=== PATIENT | female | born 1985 | race Caucasian/White ===

== ENCOUNTER 2019-07-13 18:34 | Emergency (ER) | payer OTHER, SELFPAY ==
[2019-07-13 18:48] VITALS: BP 144/87; PULSE 89; RESP 20; TEMP 36.8; O2SAT 100
--- NOTE | 2019-07-13 18:50 | ED.SKABFB ---
HPI - Skin/Abscess/Foreign Bdy General Chief complaint: Skin/Abscess/Foreign Body Stated complaint: Possible Skin infection Time Seen by Provider: 07/13/19 18:55 Source: patient and RN notes reviewed Mode of arrival: ambulatory Limitations: no limitations History of Present Illness HPI narrative: 34-year-old female presents with concern for reaction at tattoo site. Reports she got a tattoo 1 week ago, it was healing normally and she was maintaining as advised by the clay artist. Reports in one specific area the skin opened up and was oozing. She reports that area is tender. She denies any surrounding induration, erythema, tenderness. Reports her received the same patch to and has the same reaction in the same area MD complaint: other (Cellulitis) Related Data Home Medications Medication Instructions Recorded Confirmed loperamide [Imodium A-D] 2 mg PO Q2-4H PRN 07/13/19 07/13/19 Allergies Allergy/AdvReac Type Severity Reaction Status Date / Time No Known Allergies Allergy Verified 07/13/19 19:06 Review of Systems Review of Systems: Narrative: CONSTITUTIONAL: Denies malaise, chills, sweats, or fever. SKIN: Reports localized tattoo reaction MUSCULOSKELETAL: Denies myalgia. NEUROLOGIC: Denies numbness, weakness All systems reviewed & are unremarkable except as noted in HPI and below PMFSH Comments At time of signature, agree with nursing past medical, surgical, social and family history. There is no relevant family history pertinent to the presenting complaint Exam Narrative: Exam Narrative: GENERAL: Well-appearing, well-nourished, and in no acute distress. HEAD: Normocephalic EYES: PERRLA, conjunctivae clear ENT: Mucous membranes moist. NECK: Supple. CHEST: No respiratory distress. Speaks in full sentences. HEART: Regular rate and rhythm. Normal peripheral pulses. SKIN: Warm, dry erythema and excoriated skin noted on tattoo on right forearm under only areas where red ink was placed NEURO: Alert and oriented x3. PSYCH: Normal mood and affect Course Course Emergency Course: Patient is aware of diagnosis, understands and agrees to treatment plan. Anticipatory guidance given. Patient agrees to follow-up as directed and is aware of reasons to seek care at the emergency department. Portions of this record may have been created with voice recognition software Vital Signs Vital signs: Vital Signs Temperature 98.2 F 07/13/19 18:48 Pulse Rate 89 07/13/19 18:48 Respiratory Rate 20 07/13/19 18:48 Blood Pressure 144/87 H 07/13/19 18:48 Pulse Oximetry 100 07/13/19 18:48 Temperature 98.2 F 07/13/19 18:48 Pulse Rate 89 07/13/19 18:48 Respiratory Rate 20 07/13/19 18:48 Blood Pressure 144/87 H 07/13/19 18:48 Pulse Oximetry 100 07/13/19 18:48 Reviewed. MDM - Skin/Abscess/Foreign Bdy MDM Narrative Medical decision making narrative: Does not appear at this time to be erythema multiforme, bullous, SJS, TEN; no evidence at this time to suggest RMSF, endocarditis or Lyme disease; patient looks well, nontoxic and is tolerating oral intake; no neurologic signs or symptoms; no headache, photophobia or neck pain; afebrile; appropriate for initial outpatient treatment; discussed the importance of follow-up, patient agrees; question, viral exanthema, contact dermatitis, allergic dermatitis, eczema, urticaria, cellulitis. No soft palate or uvula edema, no tongue, lip edema or other mucosal involvement, no respiratory compromise, no stridor, no wheezing, no wheezing, no history of syncope, no hypotension, no nausea, vomiting, or diarrhea. Instructed patient to go to nearest ER immediately for any worsening symptoms including but not limited to: fever, spreading rash, pain, sore throat, headache, dizziness, chest pain, trouble breathing, or any symptoms concerning to the patient. Critical Care Time Critical Care Time Critical Care Time: No Discharge Plan Discharge Clinical Impression:
== END 2019-07-13 19:12 | disposition home or self-care (01) ==
PROVIDERS: Emergency Provider Nurse Practitioner
DX: L81.8 Other specified disorders of pigmentation (principal); L53.9 Erythematous condition, unspecified; N80.9 Endometriosis, unspecified
CPT/HCPCS: 99213; G0463

== ENCOUNTER 2020-12-31 17:33 | Emergency (ER) | payer OTHER, SELFPAY ==
[2020-12-31 17:40] VITALS: BP 121/76; PULSE 111; RESP 16; TEMP 37.5; O2SAT 99
--- NOTE | 2020-12-31 18:13 | ED.URI ---
HPI - URI/Sore Throat General Chief Complaint: Upper Respiratory Infection Stated Complaint: Coughing, sore Throat, Body pain Source: patient Mode of arrival: ambulatory Limitations: no limitations History of Present Illness HPI Narrative: Patient is a 35-year-old female who presents complaining of left eye pain, sore throat and mild cough. Patient reports sore throat x1 day. She denies fever, chills, body aches or chest pain. Patient is vaccinated for Covid x2. She denies known exposure. She denies significant medical history at this time. MD elicited complaint: sore throat Related Data Allergies Allergy/AdvReac Type Severity Reaction Status Date / Time No Known Allergies Allergy Verified 07/13/19 19:06 Review of Systems Review of Systems: CONSTITUTIONAL: Denies fever, chills, or sweats. EYES: Denies visual changes, redness, or discharge. ENT: Reports sore throat and left eye pain CARDIOVASCULAR: Denies chest pain, palpitations, or edema. RESPIRATORY: Reports cough, denies dyspnea. GASTROINTESTINAL: Denies abdominal pain, nausea, vomiting, or diarrhea. GENITOURINARY: Denies dysuria or hematuria. SKIN: Denies rash or itching. MUSCULOSKELETAL: Denies back pain, joint pain, or myalgia. NEUROLOGIC: Denies headache, numbness, dizziness, or weakness. PSYCHIATRIC: Denies anxiety or depression. 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 Surgical History Surgical History H/O tubal ligation H/O: History of hysterectomy Hx of cholecystectomy Hx of tonsillectomy Family History Family History (Updated 12/31/20 @ 18:17 by IAM [place]) Other Alzheimers disease Diabetes mellitus Hepatitis Hypertension Social History Social History (Updated 12/31/20 @ 18:17 by IAM [place]) Smoking status: Current every day smoker Alcohol intake: current Alcohol use details: Occasional Substance use: never Living arrangements: with family Comments At the time of signature, I have reviewed and agree with nursing past medical, surgical, social, and family history unless otherwise noted. Please see nursing chart for further information. There is no relevant family history pertinent to the presenting complaint. Exam Narrative: GENERAL: Well-appearing, well-nourished, and in no acute distress. HEAD: Normocephalic, atraumatic. EYES: EOMI. No redness or drainage. Conjunctiva are normal. Edema to left lower lid, visualized stye ENT: Mucous membranes pink and moist. Nares clear. No rhinorrhea. Throat normal. Uvula midline. NECK: AROM. Supple. No lymphadenopathy. CHEST: No respiratory distress. HEART: Regular rate and rhythm. EXTREMITIES: Normal range of motion. No edema. SKIN: Warm, dry, no rash. NEURO: No focal deficits. Alert and oriented x3. Gait steady. PSYCH: Normal affect. No signs of depression or anxiety. Course Vital Signs Vital signs: Vital Signs Temperature 37.5 C 12/31/20 17:40 Pulse Rate 111 H 12/31/20 17:40 Respiratory Rate 16 12/31/20 17:40 Blood Pressure 121/76 12/31/20 17:40 Pulse Oximetry 99 12/31/20 17:40 Temperature 37.5 C 12/31/20 17:40 Pulse Rate 111 H 12/31/20 17:40 Respiratory Rate 16 12/31/20 17:40 Blood Pressure 121/76 12/31/20 17:40 Pulse Oximetry 99 12/31/20 17:40 Reviewed MDM - URI/Sore Throat MDM Narrative Medical decision making narrative: Patient's rapid strep is negative at this time. Patient refuses Covid PCR as she reports she is vaccinated. Discussed with patient that there is still a possibility for Covid, however, patient continues to refuse. Patient also seen to have stye to left eye. Discussed plan of care. Patient agrees with plan of care, patient is stable for discharge to home with outpatient follow-up as needed. Differential Diagnos
== END 2020-12-31 18:26 | disposition home or self-care (01) ==
PROVIDERS: Emergency Provider Nurse Practitioner
DX: H00.015 Hordeolum externum left lower eyelid (principal); N80.9 Endometriosis, unspecified
CPT/HCPCS: 87081; 87880; 99213; G0463

== ENCOUNTER 2023-12-14 17:29 | Emergency (ER) | payer OTHER, SELFPAY ==
--- NOTE | ~2023-12-14 | XR_ITS ---
EXAM: XR lumbar spine 2-3V DATE: 12/14/2023 18:45 HISTORY: low back pain x 10 days. NKI. Radiates down left leg . COMPARISON: None available. FINDINGS: Thoracolumbar scoliosis. 5 nonrib-bearing lumbar-type vertebral bodies. Pedicles intact. No rmal vertebral body alignment. Vertebral body heights preserved. Mild degenerative disc disease at L4 -5. Mild facet arthropathy in the mid and lower lumbar spine. No fracture or dislocation. IMPRESSION: No acute fracture or traumatic malalignment detected in the lumbar spine. Reviewed, dictated and finalized at location K.
[2023-12-14 17:40] VITALS: BP 132/78; PULSE 76; RESP 16; TEMP 36.3; O2SAT 100
--- NOTE | 2023-12-14 18:35 | ED.GENADULT ---
HPI - General Adult General Chief complaint: Back Pain/Injury Stated complaint: back pain x 10days Source: patient Mode of arrival: ambulatory Limitations: no limitations History of Present Illness HPI narrative: Patient presents for evaluation of left lower back pain. Symptom onset 10 days ago. She cannot identify any precipitating cause or injury. Pain is constant, dull when lying down, and shooting with certain movements. She rates her pain 8/10 severity. Pain radiates down the left lower extremity. She tried taking NSAIDs and apply warm moist heat without considerable improvement in her symptoms or after. No history of similar symptoms. Related Data Allergies Allergy/AdvReac Type Severity Reaction Status Date / Time No Known Allergies Allergy Verified 07/13/19 19:06 Review of Systems Review of Systems: CONSTITUTIONAL: Denies fever, chills, or sweats. EYES: Denies visual changes, redness, or discharge. ENT: Denies rhinorrhea, congestion, sore throat, or otalgia. CARDIOVASCULAR: Denies chest pain, palpitations, or edema. RESPIRATORY: Denies cough or dyspnea. GASTROINTESTINAL: Denies abdominal pain, nausea, vomiting, or diarrhea. GENITOURINARY: Denies dysuria or hematuria. SKIN: Denies rash or itching. MUSCULOSKELETAL: Reports left lower back pain with radiation into the left lower extremity NEUROLOGIC: Denies headache, numbness, dizziness, or weakness. PSYCHIATRIC: Denies anxiety or depression. 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 Surgical History Surgical History H/O tubal ligation H/O: History of hysterectomy Hx of cholecystectomy Hx of tonsillectomy Family History Family History Other Alzheimers disease Diabetes mellitus Hepatitis Hypertension Social History Social History (Updated 12/14/23 @ 18:36 by IAM Dc, ) Smoking packs per day: 1 Smoking cigarettes per day: 20.0 Smoking status: Current every day smoker Alcohol intake: current Alcohol use details: Occasional Substance use: never Living arrangements: with family Gender identity (if verbalized by the patient): Female Spiritual care concerns: No Exam Narrative: GENERAL: Well-appearing, well-nourished, and in no acute distress. HEAD: Normocephalic, atraumatic. EYES: PERRLA and EOMI. ENT: Nares clear, no rhinorrhea or epistaxis. Mucous membranes moist. Oropharynx without tonsillar hypertrophy exudate or other lesions. Bilateral TMs pearly man nonbulging NECK: Supple. No adenopathy or masses. No carotid bruits or JVD CHEST: Clear to auscultation. No respiratory distress. No wheezes rales or rhonchi HEART: Regular rate and rhythm. No murmur heard. Normal peripheral pulses. ABDOMEN: Soft, nontender, nondistended, normal active bowel sounds. BACK: No tenderness in the midline or paraspinous muscles bilaterally of lumbar spine. There is tenderness over the left SI joint. EXTREMITIES: Normal range of motion. No edema. SKIN: Warm, dry, no rash. NEURO: No focal deficits. Alert and oriented x3. PSYCH: Normal mood and affect. Course Course Emergency Course: This is a 38-year-old female who presented for evaluation of low back pain. X-ray negative. Will treat with Medrol Dosepak, Flexeril and Lidoderm. Follow-up with primary provider. Go to the ER for worsening symptoms. Patient in agreement with plan care Level of Care: Express Care Visit Vital Signs Vital signs: Vital Signs Temperature 36.3 C L 12/14/23 17:40 Pulse Rate 76 12/14/23 17:40 Respiratory Rate 16 12/14/23 17:40 Blood Pressure 132/78 12/14/23 17:40 Pulse Oximetry 100 12/14/23 17:40 Oxygen Delivery Room Air 12/14/23 17:40 Temperature 36.3 C L 12/14/23 17:
== END 2023-12-14 19:18 | disposition home or self-care (01) ==
PROVIDERS: Emergency Provider Nurse Practitioner; PCP Hospitalist
DX: M54.16 Radiculopathy, lumbar region (principal); F17.210 Nicotine dependence, cigarettes, uncomplicated
CPT/HCPCS: 72100; 99213; G0463